=== PATIENT | male | born 1965 | race Caucasian/White ===

== ENCOUNTER 2021-08-14 09:27 | Emergency (ER) | payer BC, OTHER ==
[~2021-08-14] VITALS: Ht 170.2 cm; Wt 112.8 kg
[2021-08-14] MEDS ORDERED: LISI10TA22 PO (09:37)
[2021-08-14] MEDS ORDERED: ISOS1TAB12 PO (09:37)
[2021-08-14] MEDS ORDERED: METF-877 PO (09:37)
[2021-08-14] MEDS ORDERED: METO1TAB7 PO (09:37)
[2021-08-14 11:27] VITALS: BP 122/69
== END 2021-08-14 11:45 | disposition home or self-care (01) ==
LOC: M ED 09:27
DX: S80.12XA Contusion of left lower leg, initial encounter (principal); I10 Essential (primary) hypertension; E11.9 Type 2 diabetes mellitus without complications; W21.03XA Struck by baseball, initial encounter; Y92.9 Unspecified place or not applicable; Y93.9 Activity, unspecified; Y99.9 Unspecified external cause status; Z79.811 Long term (current) use of aromatase inhibitors; Z79.4 Long term (current) use of insulin